=== PATIENT | female | born 1995 | race African-American/Black ===

== ENCOUNTER 2023-11-07 09:11 | Emergency (ER) | payer BC, OTHER, SELFPAY ==
[2023-11-07] VITALS (7 sets, daily range): BP systolic 118–145; BP diastolic 62–92; PULSE 66–81; RESP 16–19; TEMP 36.6; O2SAT 97–100; BMI 39.5
--- NOTE | ~2023-11-07 | US_ITS ---
EXAMINATION: US PELVIS CLINICAL INFORMATION: Vaginal bleeding COMPARISON: None available. TECHNIQUE: Ultrasound of the pelvis is performed using both transabdominal and transvaginal transducers along with Doppler. Transvaginal imaging is performed due to limited visualization transabdominally. FINDINGS: Uterus: The anteflexed, anteverted uterus has normal contour and echotexture; it measures approximately 9.3 x 4.4 x 5 cm (cervix to fundus x AP x transverse dimension). No evidence of uterine leiomyoma. The endometrium has normal homogeneous echotexture and measures up to approximately 0.7 cm maximum AP dimension as seen on transabdominal images. The endometrium is not optimally visualized in the fundal region on the transvaginal images. However, no focal lesions are seen. No endometrial fluid. Adnexa: The ovaries have normal size and echotexture. The right ovary is 2.9 x 2.1 x 2.6 cm, 8.3 mL. The left ovary is 3 x 1.6 x 2.3 cm, 5.8 mL. No adnexal mass. No pelvic free fluid. US/US pelvic and transvaginal IMPRESSION: Normal ultrasound examination of the uterus and ovaries.
--- NOTE | 2023-11-07 09:37 | ED.GENADULT ---
HPI - General Adult General Chief complaint: Vaginal Bleeding Stated complaint: Spotting/Lethargic/Weakness Time Seen by Provider: 11/07/23 09:31 Source: patient Mode of arrival: ambulatory Limitations: no limitations History of Present Illness ED Provider: DR. Covington HPI narrative: 28-year-old female presented with vaginal spotting for 1 month. Patient with history of endometriosis and PCO patient was just started on progesterone by her OBGYN, patient for the last month complaining painless vaginal spotting, no massive vaginal bleeding, spotting has been constant, patient was complain of chronic pelvic pain which is no change from her baseline. No dysuria, no frequency urination, no vaginal discharge, sexually active, declined chance of being . Related Data Allergies Allergy/AdvReac Type Severity Reaction Status Date / Time latex Allergy Unknown Verified 11/07/23 09:16 Sulfa (Sulfonamide AdvReac Unknown Verified 11/07/23 09:16 Antibiotics) Review of Systems Review of Systems: All other systems are reviewed and are negative Constitutional: Reports as per HPI and Reports no additional constitutional complaints Eyes: Reports as per HPI and Reports no additional eye complaints Reports system reviewed and no additional complaints, except as documented Cardiovascular: Reports as per HPI and Reports no additional cardiovascular complaints Respiratory: Reports as per HPI and Reports no additional respiratory complaints Gastrointestinal: Reports as per HPI and Reports no additional gastrointestinal complaints Genitourinary: Reports no additional female genitourinary complaints Musculoskeletal: Reports no additional musculoskeletal complaints Skin/Breast: Reports system reviewed and no additional complaints, except as docu Psychiatric: Reports no additional psychiatric complaints Endocrine: Reports no additional endocrine complaints Hematologic/Lymphatic: Reports no additional hematologic/lymphatic complaints Allergic/Immunologic: Reports no additional allergic/immunologic complaints Reports system reviewed and no additional complaints, except as documented and Reports Abnormal speech present [facility] Social History Social History Advance Directives: No Do you have a plan to hurt others: No Plan Physical Exam ED Vital Signs: Vital Signs - 24 hr 11/07/23 09:13 11/07/23 09:31 11/07/23 10:36 Temperature 97.9 F 97.9 F Pulse Rate 67 81 66 Respiratory Rate 16 19 Blood Pressure 139/92 H 145/89 H 118/62 Pulse Oximetry 97 100 Oxygen Delivery Method Room Air Room Air 11/07/23 10:38 11/07/23 10:40 11/07/23 10:41 Temperature Pulse Rate 75 79 78 Respiratory Rate 18 Blood Pressure 133/84 138/82 138/82 Pulse Oximetry 99 Oxygen Delivery Method Room Air BMI result Body Mass Index 39.5 Vital signs have been reviewed and appear to be correct. Blood pressure elevated. Heart rate normal. Respiratory rate normal. Temperature normal. Oxygen saturation normal. Appearance: Alert. Oriented X3. No acute distress. Head: Normal external exam. Normocephalic. Atraumatic. No Pi[place] signs noted. No raccoon eyes noted Eyes: PERRLA. EOMI. Conjunctiva and sclera normal. Eyelids normal. ENT: TM's Normal. Pharynx normal. Uvula midline. Moist mucous membranes. No trismus noted. No drooling noted. No muffled voice noted. Neck: Normal inspection. Neck supple. FROM. No adenopathy. Thyroid Normal. No meningeal signs. No neck mass noted. CVS: Normal heart rate and rhythm. Heart sound normal. No murmurs noted. Pulses normal throughout. Respiratory: No respiratory distress. Painless inspiration. Breath sounds normal. No wheezes/rales/rhonchi noted. Chest nontender. No accessory muscle usage noted or decreased air movement noted. Abdomen: Soft and nontender. Bowel sounds normal in all 4 quadrants. No distention noted. No organomegaly noted. No visible injury noted. Back: No CVA tenderness. Full range of motion noted. Skin: Skin warm and dry. Normal skin color. Normal skin turgor. No rashes/lesions/lacerations noted. Extremities: No lower extremity edema. Extremities exhibit normal range of motion. Extremities nontender. Neuro: Oriented X 3. Cranial nerve exam: II-XII are grossly intact No motor deficit. No sensory deficit. Reflexes normal. Course Reevaluation(s) Reevaluation #1: Minimal vaginal spotting for a month secondary to hormonal therapy with progesterone for PCO and endometriosis, no , unremarkable ultrasound. Time: 12:00 Medical Decision Making Differential Diagnosis Differential Diagnoses: The differential diagnosis associated with the presentation includes (, complicated , severe anemia, electrolyte derangement, intrauterine pathology, hemodynamic instability.) Admission/Observation Consideration of admission/observation: Escalation of care including admission/observation considered Lab Data MDM Lab Attestation statement: I reviewed the patient's lab results. 11/07/23 09:40 11/07/23 09:40 Labs: Lab Results 11/07/23 11/07/23 Range/Units 09:40 10:42 WBC 10.1 (4.8-10.8) X10*3/uL RBC 5.05 (4.20-5.50) X10*6/uL Hgb 13.6 (12.0-16.0) g/dl Hct 40.6 (37.0-47.0) % MCV 80.4 (80.0-98.0) fL MCH 26.9 L (27.0-33.0) pg MCHC 33.5 (31.0-35.0) g/dl RDW 14.0 (11.0-16.0) % Plt Count 342 (160-400) X10*3/uL MPV 11.2 (9.4-12.3) fL Immature Gran % (Auto) 0.3 (0.0-0.4) % Neut % (Auto) 58.2 (45-73) % Lymph % (Auto) 32.7 (20-40) % [place] % (Auto) 6.1 (2-11) % Eos % (Auto) 2.2 (0-4) % Baso % (Auto) 0.5 (0-2) % Lymph # (Auto) 3.3 (1.2-4.9) X10*3/uL [place] # (Auto) 0.6 (0.1-1.2) X10*3/uL Eos # (Auto) 0.2 (0.0-0.4) X10*3/uL Baso # (Auto) 0.1 (0.0-0.2) X10*3/uL Abs Immat Gran (auto) 0.03 (0.00-0.03) X10*3/uL Absolute Neuts (auto) 5.9 (2.0-8.3) x10*3/uL Absolute Nucleated RBC 0.000 (0.0-0.012) X10*3/uL Nucleated RBC % (auto) 0.0 (0.0-0.2) /100WBC Sodium 140 (135-145) mmol/L Potassium 4.3 (3.3-5.1) mmol/L Chloride 109 H (96-108) mmol/L Carbon Dioxide 22 (22-29) mmol/L Anion Gap 13 (12-20) BUN 16 (9-16) mg/dL Creatinine 0.79 (0.5-1.4) mg/dL Estim Creat Clear Calc 131.5 Estimated GFR > 60 Random Glucose 95 (60-115) mg/dL Calcium 9.3 (8.4-10.2) mg/dL Total Bilirubin 0.3 (0.0-1.0) mg/dL AST 18 (5-31) U/L ALT 14 (0-31) U/L Alkaline Phosphatase 76 (39-117) U/L Total Protein 7.7 (6.5-8.0) g/dL Albumin 4.2 (3.5-5.0) g/dL Beta HCG, Quant < 2 mIU/mL Urine Color Yellow Urine Appearance Clear Urine pH 8.0 (5.0-9.0) Ur Specific [place] 1.010 (1.005-1.025) Urine Protein Negative (Neg-Trace) mg/dL Urine Glucose (UA) Negative (Negative) mg/dL Urine Ketones Negative (Negative) mg/dL Urine Blood Negative (Negative) Urine Nitrite Negative (Negative) Ur Leukocyte Esterase Negative (Negative) Urine Test NEGATIVE (NEGATIVE) Independent Interpretation I performed an independent interpretation of an: Ultrasound (Pelvic ultrasound: No acute intrapelvic pathology.) Radiology Impression Discussion of test interpretation with radiology: I have reviewed the radiologist's reading. Discharge Plan Discharge Clinical Impression: Abnormal vaginal bleeding Patient Disposition: Home, Self-Care Instructions: Dysfunctional Uterine Bleeding (ED) Additional Instructions: Follow-up with your OBGYN in the symptoms persist. Print Language: [place]
[2023-11-07 09:49] LABS: MANUAL DIFF FLAG NO
[2023-11-07 09:50] LABS: Basophils Absolute Auto 0.1 X10*3/uL (0.0-0.2); Basophils Percent Auto 0.5 % (0-2); Eosinophils Absolute Auto 0.2 X10*3/uL (0.0-0.4); Eosinophils Percent Auto 2.2 % (0-4); Hematocrit 40.6 % (37.0-47.0); Hemoglobin 13.6 g/dl (12.0-16.0); Imm Gran Abs Auto 0.03 X10*3/uL (0.00-0.03); Imm Gran Pct Auto 0.3 % (0.0-0.4); Lymphocytes Absolute Auto 3.3 X10*3/uL (1.2-4.9); Lymphocytes Percent Auto 32.7 % (20-40); Mean Corpuscular HGB Conc 33.5 g/dl (31.0-35.0); Mean Corpuscular Hemoglobin 26.9 pg (27.0-33.0); Mean Corpuscular Volume 80.4 fL (80.0-98.0); Mean Platelet Volume 11.2 fL (9.4-12.3); Monocytes Absolute Auto 0.6 X10*3/uL (0.1-1.2); Monocytes Percent Auto 6.1 % (2-11); Neutrophils Absolute Auto 5.9 x10*3/uL (2.0-8.3); Neutrophils Percent Auto 58.2 % (45-73); Platelet Count 342 X10*3/uL (160-400); Red Blood Count 5.05 X10*6/uL (4.20-5.50); White Blood Count 10.1 X10*3/uL (4.8-10.8)
[2023-11-07 10:05] LABS: Alanine Aminotransferase 14 U/L (0-31); Albumin Level 4.2 g/dL (3.5-5.0); Alkaline Phosphatase 76 U/L (39-117); Anion Gap 13 (12-20); Aspartate Amino Transferase 18 U/L (5-31); Bilirubin Total 0.3 mg/dL (0.0-1.0); Blood Urea Nitrogen 16 mg/dL (9-16); Calcium 9.3 mg/dL (8.4-10.2); Carbon Dioxide 22 mmol/L (22-29); Chloride 109 mmol/L (96-108); Creatinine Clr Calc Pharmacy 131.5; Estimated Glomerular Filt Rate > 60; Glucose Random 95 mg/dL (60-115); Potassium 4.3 mmol/L (3.3-5.1); Sodium 140 mmol/L (135-145); Total Protein 7.7 g/dL (6.5-8.0)
[2023-11-07 10:54] LABS: Appearance Urine Clear; Color Urine Yellow; Glucose Urine UA Negative (Negative); Leukocyte Esterase Urine Negative (Negative); Nitrite Urine Negative (Negative); Urine Blood Negative (Negative); Urine Ketones Negative (Negative); Urine Protein Negative (Neg-Trace)
[2023-11-07 10:56] LABS: UPreg QC Valid YES; Urine Pregnancy NEGATIVE (NEGATIVE)
[2023-11-07 11:02] LABS: HCG Quantitative < 2 mIU/mL
== END 2023-11-07 12:05 | disposition home or self-care (01) ==
PROVIDERS: Emergency Provider Emergency Medicine
DX: N93.8 Other specified abnormal uterine and vaginal bleeding (principal); R10.2 Pelvic and perineal pain; Z79.899 Other long term (current) drug therapy
CPT/HCPCS: 36415; 76830; 76856; 80053; 81003; 81025; 84702; 85025; 99284

== ENCOUNTER 2025-03-04 17:15 | Emergency (ER) | payer MEDICAID, SELFPAY ==
--- OUTSIDE RECORDS SUMMARY | 2025-03-01 11:30 | XMS_ITS | Encounter Summary ---
Author Organization [facility] Address [address] [place] [address] Care Team Providers Care [employer] Name Role Phone Jp Esposito MD Primary Care Provider Reason for Referral * Consultation (Routine) - Authorized Specialty Diagnoses / Procedures Referred By Contact Referred To Contact Orthopaedics / Orthopaedic Surgery Diagnoses Chronic right shoulder pain Jp Esposito MD [address] [place] [address] Phone: tel: fax: Mitchell Mack MD [address] [place] [phone] Phone: tel: fax: Referral ID Status Reason Start Date Expiration Date Visits Requested Visits Authorized [id number] Authorized Specialty Services Required 03/01/2026 1 1 * Medications - Pending Review Specialty Diagnoses / Procedures Referred By Contac t Referred To Contact Diagnoses Class 3 severe obesity due to excess calories with serious comorbidity and body mass index (BMI) of 40.0 to 44.9 in adult (CMS/HCC V24, CMS/HCC V28) Jp Espoisto MD [address] [place] [address] Phone: tel: fax: Referral ID Status Reason Start Date Expiration Date V isits Requested Visits Authorized [id number] Pending Review 1 1 Reason for Visit * Reason Comments Establish Care New Patient. Encounter Details Date Type Department Care Team (Late st Contact Info) Description 03/01/2025 11:30 AM EST Office Visit Adult Medicine [facility] [address], [place] [phone] Jp Esposito MD [address] [place], [place] Adult general medical examination (Primary Dx); Anxiety and depression; Endometriosis; Screening for lipid disorders; Screening for diabetes mellitus (DM); Class 3 severe obesity due to excess calories with serious comorbidity and body mass index (BMI) of 40.0 to 44.9 in adult (CMS/HCC V24, CMS/HCC V28); Chronic right shoulder pain Social History Tobacco Use Types Packs/Day Years Used Date Smoking Tobacco: Never Passive Smoke Exposure: Never Smokeless Tobacco: Never Alcohol Use Standard Drinks/Week Comments Yes 0 (1 standard drink = 0.6 oz pur e alcohol) Housing Instability Answer Date Recorde d Are you worried that in the next 2 months you may not have stable housing? No 03/01/2025 Food Access & Nutrition Answer Date Rec orded Do you have access to a vari ety of food including fruits and vegetables? Yes 03/01/2025 Access to Healthcare Answer Date Record ed Within the last 3 months, ralph escobar many times did you visit the emergency department for your medical care? 0 03/01/2025 Health Literacy Answer Date Recorded How often do you need to hav e someone help you when you read instructions, pamphlets, or other written material from your doctor or pharmacy? Never 03/01/2025 Caregiver: How often do you need to have someone help you when you read instructions, pamphlets, or other written material from your doctor or pharmacy? Not on file 03/01/2025 Financial Risk Answer Date Recorded How hard is it for you to pa y for the very basics like food, housing, medical care, and air conditioning / heating? Not very hard 03/01/2025 Transportation Answer Date Recorded Has the lack of transportati on kept you from meetings, work, or from getting things needed for daily living? No Has the lack of transportati on kept you from medical appointments or from getting medications? No 03/01/2025 Social Isolation Answer Date Recorded How often do you feel lonely or isolated from th ose around you? Never 03/01/2025 Food Risk Answer Date Recorded Within the past 12 months we worried whether our food would run out before we got money to buy more. Never true 03/01/2025 Within the past 12 months th e food we bought just didn't last and we didn't have money to get more. Never true 03/01/2025 Dependent Care Answer Date Recorded Do you need help finding or paying for care for your loved ones. For example, director child or elderly care for an older adult? No 03/01/2025 Education Answer Date Recorded Do you think completing more education or training, like finishing a GED, going to college, or learning a trade, would be helpful for you? No 03/01/2025 Employment and Income Answer Date Recor ded During the last four weeks, have you been actively looking for work? No 03/01/2025 Living Situation Answer Date Recorded What is your living situation? Unrecognized valu e 03/01/2025 Comments No Sex and Gender Information Value Date Recorded Sex Assigned at Female 04/16/2024 5:51 PM EST Legal Sex Female 4:23 AM EST Gender Identity Female 04/16/2024 5:51 PM EST Sexual Orientation Straight 04/16/2024 5: 51 PM EST documented as of this encounter Last Filed Vital Signs Vital Sign Reading Time Taken Comments Blood Pressure 132/88 03/01/2025 11:32 AM EST Pulse 64 03/01/2025 11:32 AM EST Temperature 36.1 C (96.9 F) 03/01/2025 11:32 AM EST Respiratory Rate 16 03/01/2025 11:32 AM EST Oxygen Saturation 97% 03/01/2025 11:32 AM EST Inhaled Oxygen Concentration - - Weight 115 kg (253 lb 9.6 oz) 03/01/2025 11:32 A M EST Height 167.6 cm (5' 6 ) 03/01/2025 11:32 AM EST Body Mass Index 40.93 03/01/2025 11:32 AM EST documented in this encounter Ordered Prescriptions Prescription Sig Dispense Quantity Refills Last Filled Start Date End Date sertraline (ZOLOFT) 50 mg tablet Take 1 tablet (50 mg total) by mouth 1 (one) time each day. 90 each 1 03/01/2025 Zepbound 2.5 mg/0.5 mL injectionIndication s:Class 3 severe obesity due to excess calories with serious comorbidity and body mass index (BMI) of 40.0 to 44.9 in adult ([facility] V24, [facility] V28) Inject 0.5 mL (2.5 mg total) under the skin every 7 (seven) days. 2 mL 03/01/2025 documented in this encounter Progress Notes * Suzanna Rodriguez MA - 03/01/2025 11:30 AM EST Visit Vitals BP 132/88 Pulse 64 Temp 36.1 ??C (96.9 ??F) (Temporal) Resp 16 Ht 1.676 m (66 ) Wt 115 kg (253 lb 9.6 oz) LMP 02/06/2025 (Exact Date) SpO2 97% BMI 40.93 kg/m?? OB Status Having periods Smoking Status Never BSA 2.21 m?? Depression Screening Will the patient answer the depression risk questions?: Yes Over the last 2 weeks, how often have you been bothered by little interest or pleasure in doing things?: Not at all Over the last 2 weeks, how often have you been bothered by feeling down, depressed, or hopeless?: Not at all Depression Risk: 0 Additional Depression Screening PHQ -9 Depression Risk Score: 0 Screening Result: Negative Risk Category: Negative Social Influencers of Health Who provided answers?: Self Within the past 12 months we worried whether our food would run out before we got money to buy more.: Never true Within the past 12 months the food we bought just didn't last and we didn't have money to get more.: Never true How hard is it for you to pay for the very basics like food, housing, medical care, and air conditioning / heating?: Not very hard Are you worried that in the next 2 months you may not have stable housing?: No Do you have access to a variety of food including fruits and vegetables?: Yes Within the last 3 months, how many times did you visit the emergency department for your medical care?: 0 Has the lack of transportation kept you from meetings, work, or from getting things needed for daily living?: No Has the lack of transportation kept you from medical appointments or from getting medications?: No How often do you feel lonely or isolated from those around you?: Never How often do you need to have someone help you when you read instructions, pamphlets, or other written material from your doctor or pharmacy?: Never * Jp Esposito MD - 03/01/2025 11:30 AM EST CHIEF COMPLAINT: Establish Care (New Patient. ) IDENTIFIER: Merle Baltazar is a 29 y.o. old female. HPI: Patient presents today for annual physical exam. 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 ROS: GENERAL: Negative for malaise, significant weight loss and fever HEENT: No changes in hearing or vision. 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 SKIN: No lesions, rash, or itching PSYCH: No sleep disturbances, depression or major stressors HEMATOLOGY/LYMPHOLOGY: No prolonged bleeding, easy bruising, or swollen lymph nodes ENDOCRINE: Negative for cold or heat intolerance, polyuria, polydipsia and goiter NEURO: No persistent headache, fainting, seizures, strokes, TIAs, weakness, numbness or tingling The remainder of review of systems is noncontributory. PAST MEDICAL HISTORY: Patient Active Problem List Diagnosis Date Noted Anxiety and depression 03/01/2025 Endometriosis 03/01/2025 Class 3 severe obesity due to excess calories with serious comorbidity and body mass index (BMI) of40.0 to 44.9 in adult ([facility] V24, [facility] V28) 03/01/2025 SOCIAL HISTORY: Social History Tobacco Use Smoking status: Never Passive exposure: Never Smokeless tobacco: Never Substance Use Topics Alcohol use: Yes FAMILY HISTORY: Family Status Relation Name Status Mother (Not Specified) Father (Not Specified) Brother (Not Specified) PGF (Not Specified) No partnership data on file Family History[1] ACTIVE MEDICATIONS: Medications Taking[2] ALLERGIES: Latex, Ciprofloxacin, and Lactose PHYSICAL EXAM: Blood pressure 132/88, pulse 64, temperature 36.1 ??C (96.9 ??F), temperature source Temporal, resp. rate 16, height 1.676 m (66 ), weight 115 kg (253 lb 9.6 oz), last menstrual period 02/06/2025, SpO2 97%. Body mass index is 40.93 kg/m??. BMI is greater than 25.0 (above the normal range) - see Plan APPEARANCE: Alert and in no acute distress EYES: PERRLA, conjunctiva and sclera normal EARS: External ears normal. Canals clear. TMs normal. NOSE/SINUS: Nares normal. Septum midline. Mucosa normal. No drainage or sinus tenderness MOUTH/THROAT: no erythema, lesions, or exudates NECK: Neck supple, no adenopathy, thyroid symmetric and of normal size HEART: RRR with normal S1 and S2, no murmurs, no gallops, no JVD appreciated CHEST: non-tender LUNG: clear to auscultation bilaterally ABDOMEN: Bowel sounds normoactive, no bruits and soft, non-tender, without organomegaly or palpablemasses BACK: no pain to palpation and good flexion and extension EXTREMITIES: Extremities warm and well perfused without clubbing, cyanosis, or edema NEURO: Awake, alert and oriented x 3 and reflexes symmetrical SKIN: Skin color, texture, turgor normal. No rashes or lesions. LABS/IMAGING: Lab Results Component Value Date WBC 10.0 04/16/2024 HGB 12.9 04/16/2024 HCT 40.1 04/16/2024 MCV 81.8 04/16/2024 Lab Results Component Value Date NA 137 04/16/2024 K 4.2 04/16/2024 CO2 27 04/16/2024 CL 104 04/16/2024 BUN 8 04/16/2024 No results found for: CHOL , LDL , HDL , TRIG No results found for: TSH IMPRESSION: 1. Adult general medical examination 2. Anxiety and depression 3. Endometriosis 4. Screening for lipid disorders 5. Screening for diabetes mellitus (DM) 6. Class 3 severe obesity due to excess calories with serious comorbidity and body mass index (BMI)of 40.0 to 44.9 in adult ([facility] V24, [facility] V28) 7. Chronic right shoulder pain PLAN: 1. Health maintenance: The patient presented for an evaluation of general health. As part of this visit, we reviewed the following issues, which are considered an essential part of preventative health in this age group: - Breast cancer screening for high risk individuals - mammogram up-to-date - Cervical cancer testing every 1-3 years - patient is up-to-date - Blood pressure annual screening performed - Cholesterol screening every five years - ordered - Nutritional and exercise counseling - patient advised to pursue at least 30 minutes of exercise most days of the week, limit portion sizes, eat breakfast, and avoid eating after dinner - Screening for Type 2 diabetes mellitus in those with hypertension and/or hyperlipidemia - Prevention of and/or testing for infectious diseases, which may include Chlamydia, Gonorrhea, Syphilis, HIV, Hepatitis C and Tuberculosis - advice about STD prevention provided - Recommendation of an eye exam for glaucoma once in this age range - patient will self-refer - Screening for substance abuse (including tobacco, alcohol, and recreational drugs) - see Substance & Sexuality section of medical record - Genetic cancer risk screening - NO INDICATION: Hereditary Cancer Syndrome Risk Assessment completed and evaluated. No indication found for genetic testing at this time. - In addition to reviewing these issues, I have reviewed the following sections of the chart: Past Medical History, Social History, and Social History - Did you have a dental visit in the last 12 months? Yes - Did you have a dental problem in the last 6 months? No Patient has tried lifestyle interventions for the past 6 months to help her lose weight without much success, will start GLP-1 agonist Zepbound for weight loss. She also has PCOS. She is scheduled for laparoscopic additional surgery for endometriosis tomorrow at [facility]. Reports having a normal CBC and CMP done recently. Will check A1c and lipid panel. I have applied the code G2211 to this patient???s visit as the primary care provider dealing with (above mentioned conditions) leading to the extensive work up, and management associated with the medical care of this patient. This patient???s serious conditions and complex medical conditions also required several consultants needing management and coordination through my office. I have reviewed all information as it pertains to the management of this patient for final approval. Orders Placed This Encounter Procedures Hemoglobin A1c Standing Status: Future Expiration Date: 03/01/2026 Lipid panel with reflex to direct LDL Standing Status: Future Expiration Date: 03/01/2026 Ambulatory referral to Orthopedic Surgery Standing Status: Future Expiration Date: 03/01/2026 Referral Priority: Routine Referral Type: Consultation Referral Reason: Specialty Services Required Requested Specialty: Orthopaedics Number of Visits Requested: 1 Jp Esposito MD on 03/01/2025 at 12:52 PM EST [1] Family History Problem Relation Name Age of Onset No Known Problems Mother No Known Problems Father Chronic Kidney Disease Brother Chronic Kidney Disease Paternal Grandfather [2] Outpatient Medications Marked as Taking for the 03/01/25 encounter (Office Visit) with Jp Esposito MD Medication Sig Dispense Refill sertraline (ZOLOFT) 50 mg tablet Take 1 tablet (50 mg total) by mouth 1 (one) time each day. documented in this encounter Plan of Treatment Scheduled Orders Name Type Priority Associated Diagnoses Orde r Schedule Hemoglobin A1c Lab Routine Screening for diabetes mellitus (DM) 1 Occurrences starting 03/01/2025 until 03/01/2026 Lipid panel with reflex to direct LDL Lab Routine Screening for lipid disorders 1 Occurrences starting 03/01/2025 until 03/01/2026 Scheduled Referrals Name Type Priority Associated Diagnoses Order Schedule Ambulatory referral to Orthopedic Surgery Outpatient Referral Routine Chronic right shoulder pain 1 Occurrences starting 03/01/2025 until 03/01/2026 documented as of this encounter Visit Diagnoses Diagnosis Adult general medical examination- Primary Unspecified general medical examination Anxiety and depression Endometriosis Endometriosis, site unspecified Screening for lipid disorders Screening for diabetes mellitus (DM) Screening for diabetes mellitus Class 3 severe obesity due to excess calories with serious comorbidity and body mass index (BMI) of 40.0 to 44.9 in adult (CMS/HCC V24, CMS/[facility] V28) Chronic right shoulder pain Pain in joint, shoulder region documented in this encounter Discontinued Medications Medication Sig Discontinue Reason Start Date End Da te oxyCODONE (ROXICODONE) 5 mg immediate release tablet Take 1 tablet (5 mg total) by mouth every 6 (six) hours if needed for severe pain. Max Daily Amount: 20 mg Patient Discharge 04/16/2024 03/01/2025 sertraline (ZOLOFT) 50 mg tablet Take 1 tablet (50 mg total) by mouth 1 (one) time each day. Reorder 03/01/2025 documented as of this encounter Historical Medications * This list may reflect changes made after this encounter. sertraline (ZOLOFT) 50 mg tablet Take 1 tablet (50 mg total) by mouth 1 (one) time each day. 03/01/2025 added in this encounter Additional Health Concerns Assessment Noted Time PHQ-9 Depression Total Score: 0 03/01/20 11:31 AM EST documented as of this encounter Care Teams [employer] Relationship Specialty Start Date End Date Jp Esposito MD [address] [place] [address] PCP - General Internal Medicine 01/12/25 documented as of this encounter
--- NOTE | ~2025-03-04 | CT_ITS ---
CLINICAL HISTORY: Chest pain surgery 2 days ago. PE? CT angiography chest with contrast. 3D Postprocessing. Comparison: CR - XR CHEST 2V - 03/04/25 17:52 EST Findings: The heart is normal size. RV/LV ratio is normal. The thoracic aorta is normal caliber. No pulmonary artery filling defects. The visualized thyroid and mediastinum are unremarkable. Trace bilateral pleural effusions. No focal consolidation or pneumothorax. Indeterminate 3.3 x 2.2 cm wedge-shaped hypodensity in the posterior right hepatic lobe (series 4, image 41) and 3.5 x 2.4 cm indeterminate hypodensity in the inferior right hepatic lobe (series 4, image 52). In the more inferior hypodensity, there is a posterior rim of enhancement. The bones are intact. IMPRESSION: No pulmonary emboli. Trace bilateral pleural effusions. Indeterminate hypodensities within the right hepatic lobe, the more inferior of which demonstrates posterior rim enhancement. Advise nonemergent MRI of the abdomen with and without intravenous contrast or multiphase liver protocol CT for further characterization. This document has been electronically signed by: Colton Bird MD on 03/04/2025 22:41:17
--- NOTE | ~2025-03-04 | XR_ITS ---
CLINICAL HISTORY: SOB Two views of the chest. Findings: Body habitus limits the study. Heart size is upper limits of normal. There is no CHF. No focal consolidation is identified. Impression: No consolidation. Possible small left pleural effusion. Mild prominence right paratracheal soft tissues recommend comparison to previous or consider further evaluation. This document has been electronically signed by: Isaac Woo MD on 03/04/2025 18:43:02
--- NOTE | 2025-03-04 17:20 | ECG_ITS ---
Test Reason : cp Blood Pressure : */* mmHG Vent. Rate : 56 BPM Atrial Rate : 56 BPM P-R Int : 238 ms QRS Dur : 98 ms QT Int : 412 ms P-R-T Axes : 17 35 27 degrees QTcB Int : 397 ms Sinus bradycardia with 1st degree A-V block Possible Anterior infarct , age undetermined Abnormal ECG No previous ECGs available Referred By: Mariano Corona Electronically Signed By: ANJEL CHINCHILLA
[2025-03-04 17:30] VITALS: BP 158/80; PULSE 59; RESP 20; TEMP 36.3; O2SAT 99; BMI 41.7
--- NOTE | 2025-03-04 17:35 | ED.GENADULT ---
HPI - General Adult General Chief complaint: Dyspnea Stated complaint: CP, SOB Time Seen by Provider: 03/04/25 20:30 History of Present Illness ED Provider: Meg Jane HPI narrative: 29-year-old female with medical history significant for endometriosis, 2 days postoperative laparoscopic endometrial surgery done at [facility] presents to the ED for evaluation reporting shortness of breath ongoing since the procedure. She reports feeling winded even in conversation. Denies any chest pain or pressure. Yesterday she started feeling very short of breath and had some tightness in the chest. She denies any palpitations, fever or chills. Reports that she was around them and also tested positive for COVID-19. Her home COVID test was negative. No acute abdominal pain, nausea or vomiting, urinary complaints. Reports she is taking ibuprofen, Tylenol, and oxycodone postoperative for the pain. Expresses concern for PE given her recent procedure. No unilateral leg pain or swelling. Related Data Allergies Allergy/AdvReac Type Severity Reaction Status Date / Time latex Allergy Unknown Verified 03/04/25 17:33 Sulfa (Sulfonamide AdvReac Unknown Verified 03/04/25 17:33 Antibiotics) Review of Systems Review of Systems: ROS is otherwise negative unless mentioned in HPI. [facility] Social History Social History Advance Directives: No Advance Directives Information Provided: No Do you have a plan to hurt others: No Plan Physical Exam ED Exam Exam: Nursing notes and vital signs reviewed. Constitutional: Well-appearing, NAD. Alert. Oriented X3. Eyes: EOMI. ENT: Pharynx normal. Neck: Normal inspection. Neck supple. CVS: Normal heart rate and rhythm. Pulses normal. Respiratory: No respiratory distress. Breath sounds normal. Abdomen: Soft and nontender. +BSx4. Skin: Skin warm and dry. Normal skin color. Incisions intact to the umbilicus and bilateral sides of the abdomen; no redness or warmth. Extremities: No lower extremity edema. Neuro: Oriented X 3. No motor deficit. Vital Signs: Vital Signs - 24 hr 03/04/25 17:30 03/04/25 19:41 Temperature 97.4 F 98.1 F Pulse Rate 59 53 Respiratory Rate 20 Blood Pressure 158/80 H 144/73 H Pulse Oximetry 99 96 Oxygen Delivery Method Room Air Room Air BMI result Body Mass Index 41.7 Course Course Course Narrative: RmE: 29 year female status post endometrial surgeon 2 days ago presents to ED for chest tightness shortness of breath on inspiration and exertion. Patient states she was around her mouth tested positive for COVID. Patient is came to the ED to be evaluated. Patient denies any leg swelling calf pain or coughing up blood. EKG labs x-ray ordered. Medications Administered Discontinued Medications Generic Name Dose Route Start Last Admin Trade Name Randy PRN Reason Stop Dose Admin Diphenhydramine HCl 25 mg 03/04/25 20:39 03/04/25 21:01 Diphenhydramine Hcl 50 Mg/Ml Vial IVPUSH 03/04/25 20:40 25 mg ONCE ONE Administration Iohexol 100 ml 03/04/25 21:27 03/04/25 21:27 Iohexol 350 Mg/Ml 100 Ml Infus..Btl IV 03/04/25 21:28 65 ml ONCE ONE Administration Morphine Sulfate 2 mg 03/04/25 20:39 03/04/25 21:01 Morphine Sulfate 4 Mg/Ml Cartridge IVPUSH 03/04/25 20:40 2 mg ONCE ONE Administration Protocol Ondansetron HCl 4 mg 03/04/25 21:07 03/04/25 21:13 Ondansetron Hcl 4 Mg/2 Ml Vial IVPUSH 03/04/25 21:08 4 mg ONCE ONE Administration Medical Decision Making Medical Decision Making [facility] Narrative: Upon my assessment she appears well. She does report mild anxiety, and also states that she typically needs medications for CT imaging given her anxiety. Her abdominal exam is benign, vitally she is stable. Bradycardia in the 50s on both readings, as well as without hypoxia, O2 sats in the high 90s both times. Less likely PE, though given the recent procedure and her reported shortness of breath, will obtain CTA of the chest. Prior to my assessment she has had lab work, which was overall reassuring. Negative influenza, COVID, RSV panel. X-ray of the chest shows no consolidation, possible small left pleural effusion, and mild prominence of the right paratracheal soft tissues. The previous provider ordered a CTA of the chest to rule out PE, which is currently pending. I have ordered for the patient to receive a small dose of morphine for generalized abdominal pain, as well as Zofran for nausea, and Benadryl for mild sedative effect for CT of the chest. 2305-- upon review of her CTA of the chest there is no evidence of PE, there are trace bilateral pleural effusions, and indeterminate hypodensities within the right hepatic lobe, the more inferior of which demonstrates posterior rim enhancement. Outpatient she can have a nonemergent MRI. We discussed these findings, for which she is agreeable. There is no indication for admission at this time. She has remained vitally stable while in the ED, we will proceed with discharge plan. Differential Diagnosis Differential Diagnoses: The differential diagnosis associated with the presentation includes PE, PNA, bronchitis, viral illness, postoperative pain. Admission/Observation Consideration of admission/observation: Escalation of care including admission/observation considered (not indicated) Lab Data MDM Lab Attestation statement: I reviewed the patient's lab results. (overall reassuring) 03/04/25 17:41 03/04/25 17:41 Labs: Lab Results 03/04/25 Range/Units 17:41 WBC 9.3 (4.8-10.8) X10*3/uL RBC 4.38 (4.20-5.50) X10*6/uL Hgb 11.7 L (12.0-16.0) g/dl Hct 36.2 L (37.0-47.0) % MCV 82.6 (80.0-98.0) fL MCH 26.7 L (27.0-33.0) pg MCHC 32.3 (31.0-35.0) g/dl RDW 14.6 (11.0-16.0) % Plt Count 263 (160-400) X10*3/uL MPV 11.1 (9.4-12.3) fL Immature Gran % (Auto) 0.3 (0.0-0.4) % Neut % (Auto) 45.4 (45-73) % Lymph % (Auto) 45.9 H (20-40) % Appling % (Auto) 6.3 (2-11) % Eos % (Auto) 1.5 (0-4) % Baso % (Auto) 0.6 (0-2) % Lymph # (Auto) 4.3 (1.2-4.9) X10*3/uL Appling # (Auto) 0.6 (0.1-1.2) X10*3/uL Eos # (Auto) 0.1 (0.0-0.4) X10*3/uL Baso # (Auto) 0.1 (0.0-0.2) X10*3/uL Abs Immat Gran (auto) 0.03 (0.00-0.03) X10*3/uL Absolute Neuts (auto) 4.2 (2.0-8.3) x10*3/uL Absolute Nucleated RBC 0.000 (0.0-0.012) X10*3/uL Nucleated RBC % (auto) 0.0 (0.0-0.2) /100WBC PT 11.4 (11.2-13.5) SEC INR 0.9 (0.9-1.1) APTT 33.3 (26.7-34.1) SEC Sodium 141 (135-145) mmol/L Potassium 4.1 (3.3-5.1) mmol/L Chloride 108 (96-108) mmol/L Carbon Dioxide 27 (22-29) mmol/L Anion Gap 10 L (12-20) BUN 12 (9-16) mg/dL Creatinine 0.78 (0.5-1.4) mg/dL Estim Creat Clear Calc 135.9 Estimated GFR > 60 Random Glucose 87 (60-115) mg/dL Calcium 9.1 (8.4-10.2) mg/dL Total Bilirubin 0.3 (0.0-1.0) mg/dL AST 17 (5-31) U/L ALT 24 (0-31) U/L Alkaline Phosphatase 71 (39-117) U/L Troponin I High Sens 6.7 (<3.5-17.0) ng/L NT-Pro-B Natriuret Pep 91.6 (<300) pg/mL Total Protein 7.1 (6.5-8.0) g/dL Albumin 4.3 (3.5-5.0) g/dL Beta HCG, Quant < 2 mIU/mL Influenza Type A (PCR) NEGATIVE (Negative) Influenza Type B (PCR) NEGATIVE (Negative) RSV RNA Qual (PCR) NEGATIVE (Negative) SARS-CoV-2 RNA (RT-PCR) NEGATIVE (Negative) Independent Interpretation I performed an independent interpretation of an: EKG and CT Scan Interpretation: Rate:56 Rhythm: Sinus bradycardia Douglas: Normal P waves. Normal JOSS. Normal QRS complex. ST T wave : no depression, elevation qTC: 397 prior studies: not available The study has been interpreted contemporaneously by me. I have reviewed the patient's imaging and agree with the radiologist's findings. Radiology Impression Discussion of test interpretation with radiology: I have reviewed the radiologist's reading. Radiologist Impression: Chest X-Ray: Impression: No consolidation. Possible small left pleural effusion. Mild prominence right paratracheal soft tissues recommend comparison to previous or consider further evaluation. CTA PE: IMPRESSION: No pulmonary emboli. Trace bilateral pleural effusions. Indeterminate hypodensities within the right hepatic lobe, the more inferior of which demonstrates posterior rim enhancement. Advise nonemergent MRI of the abdomen with and without intravenous contrast or multiphase liver protocol CT for further characterization. Independent Historian Clinical information obtained from an independent historian. History obtained from or confirmed by: Friend (at bedside) External Record Review External record reviewed: Prior outpatient labs Discharge Plan Discharge Clinical Impression: Shortness of breath, Post-operative pain, Abnormal CT of liver Patient Disposition: Home, Self-Care Instructions: CT (Computed Tomography) Scan (ED), Pain Management After Surgery (DC) Additional Instructions: As we discussed, you had a broad workup here that included lab work, as well as a CTA of the chest, and chest x-ray. The CTA of the chest does not show evidence of any pulmonary emboli, but does show trace bilateral pleural effusions. Please be aware of this as we discussed, with any shortness of breath you should return to the ED for additional reassessment. Additionally, the CT shows There are also indeterminate hypodensities within the right hepatic lobe, the more inferior of which demonstrates posterior rim enhancement. We discussed together having an outpatient MRI ordered by your primary care provider. Your COVID, flu, RSV test was negative here. Please follow up with your primary care provider within 1 week. With any worsening complaints at any time, please seek re-evaluation in the ED. Referrals: Jp Esposito MD [Primary Care Provider, Internal Medicine] Interventions: ED Discharge Assessment Last Done: 03/04/25 23:46 Discharge Date/Time: 03/04/25 23:25 Print Language: Fijian
[2025-03-04 17:46] LABS: MANUAL DIFF FLAG NO
[2025-03-04 17:53] LABS: Hematocrit 36.2 % (37.0-47.0); Hemoglobin 11.7 g/dl (12.0-16.0); Imm Gran Abs Auto 0.03 X10*3/uL (0.00-0.03); Imm Gran Pct Auto 0.3 % (0.0-0.4); Lymphocytes Absolute Auto 4.3 X10*3/uL (1.2-4.9); Mean Corpuscular HGB Conc 32.3 g/dl (31.0-35.0); Mean Corpuscular Hemoglobin 26.7 pg (27.0-33.0); Mean Corpuscular Volume 82.6 fL (80.0-98.0); NRBC Abs Auto 0.000 X10*3/uL (0.0-0.012); NRBC Pct Auto 0.0 /100WBC (0.0-0.2); Platelet Count 263 X10*3/uL (160-400); Red Blood Count 4.38 X10*6/uL (4.20-5.50); White Blood Count 9.3 X10*3/uL (4.8-10.8)
[2025-03-04 18:00] LABS: INTERNATIONAL NORM RATIO 0.9 (0.9-1.1); Prothrombin Time 11.4 SEC (11.2-13.5)
[2025-03-04 18:02] LABS: Partial Thromboplastin Time 33.3 SEC (26.7-34.1)
[2025-03-04 18:10] LABS: Alanine Aminotransferase 24 U/L (0-31); Albumin Level 4.3 g/dL (3.5-5.0); Alkaline Phosphatase 71 U/L (39-117); Anion Gap 10 (12-20); Aspartate Amino Transferase 17 U/L (5-31); Blood Urea Nitrogen 12 mg/dL (9-16); Calcium 9.1 mg/dL (8.4-10.2); Carbon Dioxide 27 mmol/L (22-29); Chloride 108 mmol/L (96-108); Creatinine Clr Calc Pharmacy 135.9; Estimated Glomerular Filt Rate > 60; NT Pro B Type Natriuretic Pept 91.6 pg/mL (<300); Potassium 4.1 mmol/L (3.3-5.1); Sodium 141 mmol/L (135-145); Total Protein 7.1 g/dL (6.5-8.0); Troponin-I High Sensitivity 6.7 ng/L (<3.5-17.0)
[2025-03-04 18:25] LABS: Resp Syncy Virus RNA Qual PCR NEGATIVE (Negative); SARS COV2 PCR INHOUSE NEGATIVE (Negative)
[2025-03-04 19:41] VITALS: BP 144/73; PULSE 53; TEMP 36.7; O2SAT 96
--- OUTSIDE RECORDS SUMMARY | 2025-03-04 21:02 | XMS_ITS | Clinical Summary ---
Author Organization [facility] Address [address] [place] [address] Phone Care Team Providers Care Wholesale Loan Processor Name Role Phone Jp Esposito MD Primary Care Provider Allergies Active Allergy Reactions Criticality Noted Date Comments Ciprofloxacin 04/16/2024 Lactose Nausea And Vomiting Low 05/16/2018 Latex Anaphylaxis,Rash High 10/06/2017 Medications Zepbound 2.5 mg/0.5 mL injectionIndicat ions:Class 3 severe obesity due to excess calories with serious comorbidity and body mass index (BMI) of 40.0 to 44.9 in adult ([facility] V24, [facility] V28) Inject 0.5 mL (2.5 mg total) under the skin every 7 (seven) days. 2 mL 5 Active sertraline (ZOLOFT) 50 mg tablet Take 1 tablet (50 mg total) by mouth 1 (one) time each day. 90 each 1 5 Active oxyCODONE (ROXICODONE) 5 mg immediate release tablet Take 1 tablet (5 mg total) by mouth every 6 (six) hours if needed for severe pain. Max Daily Amount: 20 mg 12 tablet 5 03/01/20 Discontinu ed(Patient Discharge) sertraline (ZOLOFT) 50 mg tablet Take 1 tablet (50 mg total) by mouth 1 (one) time each day. 03/01/20 Discontinu ed(Reorder ) Active Problems Problem Noted Date Diagnosed Date Anxiety and depression 03/01/2025 Endometriosis 03/01/2025 Class 3 severe obesity due t o excess calories with serious comorbidity and body mass index (BMI) of 40.0 to 44.9 in adult ([facility] V24, [facility] V28) 03/01/2025 Encounters Date Type Department Care Team Description 03/01/2025 11:30 AM EST Office Visit Adult Medicine [facility] [address], [place] [phone] Jp Esposito MD Adult general medical examination (Primary Dx); Anxiety and depression; Endometriosis; Screening for lipid disorders; Screening for diabetes mellitus (DM); Class 3 severe obesity due to excess calories with serious comorbidity and body mass index (BMI) of 40.0 to 44.9 in adult ([facility] V24, [facility] V28); Chronic right shoulder pain 03/01/2025 Telephone Adult Medicine [facility] [address], [place] [phone] Jp Esposito MD from Last 3 Months Surgical History Surgery Date Site/Laterality Comments EXPLORATORY LAPAROTOMY Medical History Medical History Date Comments Anxiety and depression Family History Medical History Relation Name Comments Chronic Kidney Disease Brother No Known Problems Father No Known Problems Mother Chronic Kidney Disease Paternal Grandfather Relation Name Status Comments Brother Father Mother Paternal Grandfather Social History Tobacco Use Types Packs/Day Years [...] Record ed Within the last 3 months, ho w many times did you visit the emergency [...] care for your loved ones. For example, child nurse or elderly care for an older adult? [...] Orientation Straight 04/16/2024 5: 51 PM EST Obstetrics History Last Filed Vital Signs Vital Sign Reading [...] Mass Index 40.93 03/01/2025 11:32 AM EST Plan of Treatment Health Maintenance Due Date Last Done Comments Cervical Cancer Screening: Pap Smear 2014 Cholesterol Screening (Lipid Panel) 03/18/2022 COVID-19 Vaccine ( season) 2024 03/15/2021, 05/11/2020, 04/13/2020 Social Influencers of Health Screening 03/01/2026 03/01/2025 DTaP,Tdap,and Td Vaccines (9 - Td or Tdap) 07/19/2027 07/18/2017, 12/13/2015, 02/14/2007, Additional history exists RSV Immunization Adult Patients (1 - 1-dose 75+ series) 2068 Hepatitis B Vaccines Completed 01/15/1994, 1993, 1993 HIB Vaccines Completed 07/09/1994, 07/1993, 1993, Additional history exists MMR Vaccines Completed 03/23/1997, 07/09/1994 IPV Vaccines Completed 04/05/1998, 09/14, 1993, Additional history exists Varicella Vaccines Completed 02/14/2007, 03/23/1997 Meningococcal ACWY Vaccine Completed 07/20/2011, HPV Vaccines Completed 05/08/2017, 05/16, 03/22/2016 Influenza Vaccine Completed 01/28/2025, , 02/22/2023, Additional history exists Depression Screening Completed 03/01/2025 HIV Screening Discontinued Hepatitis A Vaccines Aged Out No long er eligible based on patient's age to complete this topic Hepatitis C Screening Discontinued Meningococcal B Vaccine Aged Out No l onger eligible based on patient's age to complete this topic Pneumococcal Vaccine: Pediatrics (0 to 5 Years) and At-Risk Patients (6 to 49 Years) Aged Out No longer eligible based on patient's age to complete this topic RSV Immunization Patients Under 20 months Aged Out No longer eligible based on patient's age to complete this topic Insurance [facility] [place] [address] [facility] Care Teams Wholesale Loan Processor Relationship Specialty Start Date End Date Jp Esposito MD [address] [place] [address] PCP - General Internal Medicine 01/12/25
--- OUTSIDE RECORDS SUMMARY | 2025-03-04 21:02 | XMS_ITS | Clinical Summary ---
Author Organization [facility] Address [address] [place] [address] Care Team Providers Care Nursing Tech Name Role Phone Edwin Bran MD Primary Care Provider [phone] Allergies Active Allergy Reactions Criticality Noted Date Comments Insect Wax Anaphylaxis High 10/06/2017 Bee sting Lactose (Mild /Moderate) GI Intolerance/Nausea/Vomiti ng Low 05/16/2018 Latex Anaphylaxis High 10/06/2017 Nitrofurantoin GI Intolerance/Nausea/Vomiti ng Low 04/22/2018 Medications sertraline (ZOLOFT) 50 MG tablet Take 50 mg by mouth daily. 04/11/2021 Active Atrovent HFA 17 MCG/ACT inhaler INHALE 2 PUFFS 4 TIMES A DAY NEEDED FOR WHEEZING/ELTON RTNESS OF BREATH 04/11/2021 Active loratadine-pseu doephedrine (CLARITIN-D 12-hour) 5-120 MG per 12 hr tabletIndicatio ns:Viral URI Take 1 tablet by mouth 2 (two) times a day. 60 tablet 02/23/2023 Active fluticasone (FloNASE) 50 mcg/spray nasal sprayIndication s:Viral URI 1 spray into each nostril daily. 1 each 02/23/2023 Active Active Problems No known active problems Social History Tobacco Use Types Packs/Day Years Used Date Smoking Tobacco: Never Smokeless Tobacco: Never Tobacco Cessation:Counseling Given: Not Answered Alcohol Use Standard Drinks/Week Comments Yes 0 (1 standard drink = 0.6 oz pur e alcohol) socially Comments No Sex and Gender Information Value Date Recorded Sex Assigned at Not on file Legal Sex Female 2:55 PM EDT Gender Identity Not on file Sexual Orientation Not on file Last Filed Vital Signs Vital Sign Reading Time Taken Comments Blood Pressure 121/80 02/23/2023 1:10 PM EST Pulse 78 02/23/2023 1:10 PM EST Temperature 36.9 C (98.5 F) 02/23/2023 1:10 PM EST Respiratory Rate 16 02/23/2023 1:10 PM EST Oxygen Saturation 98% 02/23/2023 1:10 PM EST Inhaled Oxygen Concentration - - Weight 117 kg (257 lb) 02/23/2023 1:10 PM EST Height 167.6 cm (5' 6 ) 02/23/2023 1:10 PM EST Body Mass Index 41.48 02/23/2023 1:10 PM EST Plan of Treatment Health Maintenance Due Date Last Done Comments Hepatitis C Virus Screening 1993 HIV Screening 2006 DTaP/Tdap/Td Vaccines (1 - Tdap) 2012 Hepatitis B Vaccines (1 of 3 - 19+ 3-dose series) 2012 Pap Smear (Ages 21-65) 2014 Influenza Vaccine 11/13/2024 02/01/2021, , 02/07/2018, Additional history exists COVID-19 Vaccine (2024- season) 2024 03/15/2021, 05/11/2020, 04/13/2020 HPV Vaccines (No Doses Required) Completed Pneumococcal Vaccine: Pediatric (0-5 Years) and At-Risk Patients (6 to 49 Years) Aged Out No longer eligible based on patient's age to complete this topic Insurance [employer] HMO/[place] [address] [place] [id number] Care Teams Nursing Tech Relationship Specialty Start Date End Date Edwin Bran MD [address] [place] [address] PCP - General 10/06/17
--- OUTSIDE RECORDS SUMMARY | 2025-03-04 21:02 | XMS_ITS | Encounter Summary ---
Author Organization [facility] Address [address] [place] [address] Care Team Providers Care Shoe Clerk Name Role Phone Jp Esposito MD Primary Care Provider Encounter Details Date Type Department Care Team (Late st Contact Info) Description 03/01/2025 Telephone Adult Medicine [facility] [address], [place] [phone] Jp Esposito MD [address] [place], [place] Social History Tobacco Use Types Packs/Day Years [...] for your loved ones. For example, child and adolescent psychologist or elderly care for an older adult? [...] PM EST documented as of this encounter Progress Notes * Shea Merino MA - 03/02/2025 9:12 AM EST Fax request sent * Jp Esposito MD - 03/01/2025 12:55 PM EST Can we get this patient's last [facility] note ? Thank you documented in this encounter Plan of Treatment Not on file documented as of this encounter Visit Diagnoses Not on filedocumented in this encounter Additional Health Concerns Assessment Noted Time PHQ-9 Depression Total Score: 0 03/01/20 11:31 AM EST documented as of this encounter Care Teams Shoe Clerk Relationship Specialty Start Date End Date Jp Esposito MD [address] [place] [address] PCP - General Internal Medicine 01/12/25 documented as of this encounter
--- OUTSIDE RECORDS SUMMARY | 2025-03-04 21:02 | XMS_ITS | Patient Health Record ---
Author Organization [facility] Address [address] [place] [address] Care Team Providers Care Corporate Staff Accountant Name Role Phone Vesta Linder Unavailable [phone] Allergies Allergen (clinical drug ingredient) Drug/Non Drug Allergy documented on EMR Reaction Allergy Type Onset Date Status Latex Rash Drug Allergy Active Reason For Referral No Information Medications Medication SIG (Take, Route, Frequency, Duration) Notes Start Date End Date Status Omeprazole 20 MG 1 capsule Orally Onc e a day Active Bentyl 20 MG Orally 3x a day prn Active Apri 0.15-30 MG-MCG 1 tablet Orally Once a day CONTINUOUSLY; Duration: 90 days 03/22/2016 Active Terazol 7 0.4 % 1 application at bedtime Vaginal Once a day; Duration: 7 day(s) 06/10/2015 Not-Taki ng ZyrTEC 5MG 1 ORAL daily; Durati on: -3 Dmitry-MJ 07/14/2011 Active Bactrim DS 800-160 MG 1 tablet Orally TW ICE A DAY; Duration: 7 days 05/28/2016 Active Fluconazole 150 MG 1 tablet Orally now; Duration: 90 days 05/07/2016 Not-Taking Cryselle-28 0.3-30 MG-MCG 1 tablet Orally Once a day CONTINUOUSLY; Duration: 90 days 05/28/2016 Active Immunizations Vaccine Route Administration Date Status Comme nts GARDASIL 9 IM Intramuscular 03/22/2016 Administered GARDASIL 9 IM Intramuscular 05/28/2016 Administered Problems Problem Type SNOMED Code ICD Code Onset Dates Problem Status W/U Status Risk Notes Problem Reflux esophagitis (494812413) Reflux esophagitis (530.11) Active confirmed Problem Irritable bowel syndrome (79721550) Irritable bowel syndrome (564.1) Active confirmed Problem Irregular Menstruation (38878534) Other specified irregular menstruation (N92.5) Active confirmed Problem Dyspareunia (90126660) Dyspareunia (625.0) Active confirmed Diag Problem Dysmenorrhea (939496120) Dysmenorrhea (625.3) Active confirmed Diag Problem Surveillance of intrauterine device contraception done (786474221372928) Surveillance of previously prescribed intrauterine contraceptive device (V25.42) Active confirmed Diag Plan Of Treatment Pending Test Test Name Order Date RPR 10/22/2014 HSV Type 2-Specific Ab, IgG 10/22/2014 Hepatitis C antibody 10/22/2014 Ultrasound : Pelvic 04/05/2015 Ultrasound : Pelvic 11/21/2015 Ultrasound : Retroperitoneal 11/21/2015 ONE SWAB 05/17/2015 Hep B S antigen 10/22/2014 Insurance Providers Payer Name Payer Address Payer Phone Subscriber Number Group Number Insured Name Patient Relationship to Insured Coverage Start Date Coverage End Date [employer] [address] [place] [address] [id number] GRACIE TAPIA YON Self - patient is the insured Medications Administered Medication Instructions Date of Administration Dosage Notes CEFTRIAXONE 05/18/2015 250 mg MIXED WITH .9 1% LIDOCAINE Medical (General) History Medical History History ICD Code Dysmenorrhea, unspecified N94.6 Dyspareunia N94.1 Irritable bowel syndrome without diarrhe a K58.9 Gastro-esophageal reflux disease with es ophagitis K21.0 Other seasonal allergic rhinitis J30.2 Chlamydial infection of genitourinary tr act, unspecified A56.2 Surgical History Surgery Date(Month/Year) Bone Spur Removed from Left Foot, Baby T oe
--- OUTSIDE RECORDS SUMMARY | 2025-03-04 21:02 | XMS_ITS | Patient Health Record ---
Author Organization [facility] Address [address] [place] [address] Care Team Providers Care Frit Mixer Name Role Phone EDWARD YON JIMENES Unavailable [phone] Allergies Allergen (clinical drug ingredient) Drug/Non Drug Allergy documented on EMR Reaction Allergy Type Onset Date Status bees (uncoded) anaphylaxis Allergy Act kaye Latex Latex anaphylaxis Allergy Active Reason For Referral No Information Medications Medication SIG (Take, Route, Frequency, Duration) Notes Start Date End Date Status Cetirizine HCl 10 MG Tablet 1 tablet Orally Once a day A ctive Sertraline HCl 50 MG Tablet 1 tablet Orally Once a day A ctive Problems Problem Type SNOMED Code ICD Code Onset Dates Problem Status W/U Status Risk Notes Problem Body mass index 40+ - morbidly obese (052977380) BMI 40.0-44.9, adult (Z68.41) Active confirmed Problem Endometriosis (324684901) Endometriosis (N80.9) Active confirmed Problem Mixed anxiety and depressive disorder (784755668) Depression with anxiety (F41.8) Active confirmed Problem Obesity (977755193) Obesity due to excess calories without serious comorbidity, unspecified classification (E66.09) Active confirmed Plan Of Treatment No Information Insurance Providers Payer Name Payer Address Payer Phone Subscriber Number Group Number Insured Name Patient Relationship to Insured Coverage Start Date Coverage End Date [employer] [facility] [employer] [address] [place] [address] [phone] [id number] Zohreh Xiongianna Self - patient is the insured 2 Medical (General) History Medical History History ICD Code hemorrhoids anxiety depression weight gain/loss
--- OUTSIDE RECORDS SUMMARY | 2025-03-04 21:02 | XMS_ITS | Clinical Summary ---
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 0 04/11/2021 Active Social History Tobacco Use Types Packs/Day Years Used Date Smoking Tobacco: Unknown Alcohol Use Standard Drinks/Week Comments Yes 0 (1 standard drink = 0.6 oz pur e alcohol) socially Sex and Gender Information Value Date Recorded Sex Assigned at Female 06/30/2021 7:02 PM EDT Gender Identity Not on file Sexual Orientation Not on file Job Start Date Occupation Industry Not on file Not on file Not on file Last Filed Vital Signs Vital Sign Reading Time Taken Comments Blood Pressure 160/81 06/30/2021 7:08 PM EDT Pulse 62 06/30/2021 7:08 PM EDT Temperature 37.2 C (98.9 F) 06/30/2021 7:08 PM EDT Respiratory Rate 18 06/30/2021 7:08 PM EDT Oxygen Saturation 99% 06/30/2021 7:08 PM EDT Inhaled Oxygen Concentration - - Weight 113.4 kg (250 lb) 06/30/2021 7:08 PM EDT Height 167.6 cm (5' 6 ) 06/30/2021 7:08 PM EDT Body Mass Index 40.35 06/30/2021 7:08 PM EDT Plan of Treatment Health Maintenance Due Date Last Done Comments Hepatitis B Vaccines (1 of 3 - 3-dose series) 1993 Hepatitis C Screening 1993 COVID-19 Vaccine (#1) 1993 Depression Screening 2005 Preventative Health Evaluation 2011 DTap / Tdap / Td (1 - Tdap) 2012 Cervical Cancer Screening (Pap Smear) 2014 Influenza Vaccine (#1) 2024 8, 02/08/2017, 02/06/2017, Additional history exists Pneumococcal Vaccine Aged Out No long er eligible based on patient's age to complete this topic RSV Ped < 20 months Aged Out No longe r eligible based on patient's age to complete this topic
--- OUTSIDE RECORDS SUMMARY | 2025-03-04 21:02 | XMS_ITS ---
Author Name [facility] Organization Unknown Results Test Name/Text Value Interpretation Date Range Source Anion Gap SerPl-sCnc 6.0 Normal 04/17/2024 5 - 14 [facility] Sodium SerPl-sCnc 137.0 mmol/L Normal 04/17/2024 135 - 14 5 [facility] BUN/Creat SerPl 11.4 Below low normal 04/17/2024 12 - 2 0 [facility] Potassium SerPl-sCnc 4.2 mmol/L Normal 04/17/2024 3.5 - 5 .1 [facility] Calcium SerPl-mCnc 9.1 mg/dL Normal 04/17/2024 8.4 - 10.2 [facility] BUN SerPl-mCnc 8.0 mg/dL Normal 04/17/2024 7 - 17 [facility] CO2 SerPl-sCnc 27.0 mmol/L Normal 04/17/2024 24 - 32 [facility] Creat SerPl-mCnc 0.7 mg/dL Normal 04/17/2024 0.5 - 1 [facility] eGFRcr SerPlBld CKD-EPI 2020 119.0 mL/min/1.73m2 Normal 04/17/2024 - [facility] Glucose SerPl-mCnc 88.0 mg/dL Normal 04/17/2024 70 - 199 [facility] Chloride SerPl-sCnc 104.0 mmol/L Normal 04/17/2024 98 - 1 07 [facility] HCG Preg SerPl Ql Negative Normal 04/16/2024 - C [facility] Monocytes # Bld Auto 0.56 K/mcL Normal 04/16/2024 0 - 0.8 [facility] Monocytes/leuk NFr Bld Auto 5.6 % Normal 04/16/2024 2 - 12 [facility] Hgb Bld-mCnc 12.9 g/dL Normal 04/16/2024 12.5 - 16 [facility] Neutrophils/leuk NFr Bld Auto 60.1 % Normal 04/16/2024 44 - 74 [facility] Platelet # Bld Auto 332.0 K/mcL Normal 04/16/2024 150 - 4 50 [facility] MCV RBC Auto 81.8 FL Normal 04/16/2024 78 - 100 [facility] Basophils # Bld Auto 0.05 K/mcL Normal 04/16/2024 0 - 0.2 [facility] Hct VFr Bld Auto 40.1 % Normal 04/16/2024 37 - 47 [facility] Basophils/leuk NFr Bld Auto 0.5 % Normal 04/16/2024 0 - 2 [facility] Eosinophil/leuk NFr Bld Auto 2.1 % Normal 04/16/2024 0 - 6 [facility] MCH RBC Qn Auto 26.3 pcg Normal 04/16/2024 25 - 33 [facility] RDW RBC Auto-Rto 14.3 % Normal 04/16/2024 12.1 - 16.2 [facility] PMV Bld Auto 10.6 FL Normal 04/16/2024 7.4 - 11.4 [facility] RBC # Bld Auto 4.9 M/mcL Normal 04/16/2024 4.2 - 5.4 [facility] Eosinophil # Bld Auto 0.21 K/mcL Normal 04/16/2024 0 - 0.5 [facility] Neutrophils # Bld Auto 6.0 K/mcL Normal 04/16/2024 1.8 - 7.8 [facility] Lymphocytes/leuk NFr Bld Auto 31.4 % Normal 04/16/2024 20 - 48 [facility] Lymphocytes # Bld Auto 3.14 K/mcL Normal 04/16/2024 1 - 3.2 [facility] MCHC RBC Auto-mCnc 32.2 g/dL Normal 04/16/2024 32 - 36 [facility] WBC # Bld Auto 10.0 K/mcL Normal 04/16/2024 4 - 10.5 [facility] History of Medication Use Medication Directions Dispensed Refills Start Date End Date Stat us iopamidoL (ISOVUE-370) 370 mg iodine /mL (76 %) injection 70 mL 70 mL, intravenous, Once in imaging, Starting on Carin 04/16/24 at 1907, For 1 dose 04/17/2024 04/17/2024 completed sodium chloride 0.9 % flush 10 mL 10 mL, intravenous, Once, On Carin 04/16/24 at 1908, For 1 dose 04/17/2024 04/17/2024 completed sodium chloride 0.9 % intravenous solution 50 mL 50 mL, intravenous, Once in imaging, Starting on Carin 04/16/24 at 1907, For 1 dose 04/17/2024 04/17/2024 completed clindamycin (CLEOCIN) 300 mg capsule Take 1 capsule (300 mg total) by mouth 3 (three) times a day for 7 days. 04/16/2024 04/24/2024 active ketorolac (TORADOL) injection 15 mg 15 mg, intravenous, Once, On Carin 04/16/24 at 1815, For 1 dose 04/16/2024 04/16/2024 completed oxyCODONE (ROXICODONE) immediate release tablet 5 mg 5 mg, oral, Once, On Carin 04/16/24 at 1815, For 1 dose 04/16/2024 04/16/2024 completed fluticasone (FloNASE) 50 mcg/spray nasal spray 1 spray into each nostril daily. 02/23/2023 active loratadine-pseudoe phedrine (CLARITIN-D 12-hour) 5-120 MG per 12 hr tablet Take 1 tablet by mouth 2 (two) times a day. 02/23/2023 active Atrovent HFA 17 MCG/ACT inhaler INHALE 2 PUFFS 4 TIMES A DAY NEEDED FOR WHEEZING/SHORTNES S OF BREATH 04/11/2021 active sertraline (ZOLOFT) 50 MG tablet Take 50 mg by mouth daily. 04/11/2021 active fluticasone (FloNASE) 50 mcg/spray nasal spray 2 sprays into each nostril daily. 05/16/2018 02/23/2023 aborted Allergies Allergen Reaction Severity Comment Documented Date Source Statu s CIPROFLOXACIN 04/16/2024 [facility] active LACTOSE NAUSEA AND VOMITING 05/16/2018 [facility] active LACTOSE (MILD /MODERATE) GI INTOLERANCE/NAUS EA/VOMITING 05/16/2018 [facility] active NITROFURANTOIN GI INTOLERANCE/NAUS EA/VOMITING 04/22/2018 [facility] active LATEX RASH 10/06/2017 [facility] active INSECT WAX ANAPHYLAXIS Bee sting [facility] Problems Problem Status Onset Date Problem Type Date of Resoluti on Source Pain, dental active EncounterDiagnosisAct [facility] Viral URI active EncounterDiagnosisAct [facility] Sore throat active EncounterDiagnosisAct [facility] Encounters Encounter Type Encounter Reason Primary Diagnosis Location Date Emergency Sent by Dentist for shooting pain down neck Other specified disorders of teeth and supporting structures [facility] 04/16/2024 Ambulatory Acute upper respiratory infection, unspecified Acute upper respiratory infection, unspecified [facility] 02/23/2023 Ambulatory [facility] 01/09/2023 Ambulatory [facility] 12/12/2022 Ambulatory Pain in right lo wer leg [facility] 06/30/2021 Care Team Organization Name Specialty Phone Email Start Date End Da te [facility] 04/18/2024 [facility] Yocasta Palencia [facility] 04/17/2024 [facility] 04/16/2024 [facility] Not Found Primary Care 05/05/2023 [facility] 023 12/12/2022 [facility] 023 [facility] RJ BRAN [facility] 06/30/2021 07/01/2024 [facility]j [facility] 06/30/2021 06/30/2021
[2025-03-04] MEDS: iohexoL 350 MG/ML 100 ML INFUS..BTL IV (21:27)
[2025-03-04 23:46] VITALS: BP 144/73; PULSE 53; RESP 16; TEMP 36.7; O2SAT 96
== END 2025-03-04 23:25 | disposition home or self-care (01) ==
PROVIDERS: Physician Assistant; Emergency Provider Emergency Medicine; PCP Internal Medicine
DX: R06.02 Shortness of breath (principal); G89.18 Other acute postprocedural pain; R93.2 Abnormal findings on diagnostic imaging of liver and biliary tract; R07.9 Chest pain, unspecified; Z03.818 Encounter for observation for suspected exposure to other biological agents ruled out
CPT/HCPCS: 71046; 71275; 80053; 83880; 84484; 84702; 85025; 85610; 85730; 87637; 93005; 96374; 96375; 99284; J1200; J2270; J2405; Q9967

== ENCOUNTER → 2025-03-04 17:20 | Outpatient (BNV) | payer MEDICAID, SELFPAY | PROVIDERS: Emergency Provider Emergency Medicine; PCP Internal Medicine; Visit Provider Internal Medicine | DX: R00.1 Bradycardia, unspecified (principal); I44.0 Atrioventricular block, first degree | CPT/HCPCS: 93010 ==

== ENCOUNTER → 2025-03-04 17:32 | Outpatient (BNV) | payer MEDICAID, SELFPAY | PROVIDERS: PCP Internal Medicine; Visit Provider Radiology Diagnostic Radiology | DX: R07.9 Chest pain, unspecified (principal); R06.02 Shortness of breath | CPT/HCPCS: 71046; 71275 ==